=== PATIENT | female | born 1980 | race Caucasian/White ===

== ENCOUNTER → 2016-03-04 13:46 | Outpatient (CLI) | payer MEDICAID ==
[~2016-03-04 13:46] MED LIST: FERROUS SULFAT325 MG; IBUPROFEN600 MG PO; PERCOCET 5-3251 TAB PO; PRENATAL COMPLE1 TAB PO
[2016-03-14 10:47] VITALS: BMI 39.0
== END | disposition home or self-care (01) ==
LOC: D.LDO 13:46
DX: O24.419 Gestational diabetes mellitus in pregnancy, unspecified control (principal); Z3A.37 37 weeks gestation of pregnancy

== ENCOUNTER → 2016-03-12 22:01 | Outpatient (CLI) | payer MEDICAID ==
[2016-03-14 10:47] VITALS: BMI 39.0
== END | disposition home or self-care (01) ==
LOC: D.LDO 22:01
DX: O24.913 Unspecified diabetes mellitus in pregnancy, third trimester (principal); Z3A.38 38 weeks gestation of pregnancy

== ENCOUNTER 2016-03-14 08:41 | Inpatient (IN) | payer MEDICAID ==
[~2016-03-14] VITALS: Ht 162.6 cm; Wt 103.2 kg
[~2016-03-14 08:41] MED LIST changes: -IBUPROFEN600 MG PO; -PERCOCET 5-3251 TAB PO
[2016-03-14 10:33] LABS: HEMATOCRIT 30.9 % (36.0-48.0); HEMOGLOBIN 9.9 g/dL (12-16); MCH 26.9 pg (26.0-34.0); MEAN PLATELET VOLUME 10.5 fL (7.4-10.4); RBC 3.68 10x6/uL (4.00-5.40); RDW 14.5 % (11.5-14.5); WBC 9.1 10x3/uL (4.8-10.8)
--- NOTE | 2016-03-14 10:40 | NUR ---
THIS RN TO ROOM FOR PT CHECK. PT LYING IN BED SUPINE WITH LEFT TILT, HOB 30 DEGREES. PT RESTING WITH EYES CLOSED, RESP EVEN AND UNLABORED. PT LEFT UNDISTURBED.
[2016-03-14 10:47] VITALS: BP 104/58; Ht 162.6 cm; Wt 103.2 kg
[2016-03-14 10:50] LABS: APPEARANCE CLEAR (CLEAR); BACTERIA FEW /hpf (NONE SEEN); BILIRUBIN NEGATIVE (NEGATIVE); COLOR YELLOW (YELLOW); EPITHELIAL CELLS 0-5 /hpf (0-5); GLUCOSE NEGATIVE (NEGATIVE); KETONE NEGATIVE (NEGATIVE); LEUKOCYTE ESTERASE NEGATIVE (NEGATIVE); NITRITE NEGATIVE (NEGATIVE); PROTEIN NEGATIVE (NEGATIVE); RED CELLS - URINE 0-5 /hpf (0-5); UROBILINOGEN NORMAL (NORMAL); WHITE CELLS - URINE 0-5 /hpf (0-5)
[2016-03-14 21:07] VITALS: BP 133/63
--- NOTE | 2016-03-14 21:30 | NUR ---
PT TRANSFERED FROM LDR 1277 TO LDR 1273 TO CONT PP CARE. SEE YAKOV FLOWSHEET FOR FULL DETAILS. SEE CPN FOR PREVIOUS PT CHARTING. PT RESTING IN BED IN SEMI-FOWLERS POSITION IN NO ACUTE DISTRESS. FRESH WATER MUG PROVIDED TO PT. PT ORIENTED TO ROOM. PT IS A 36YO G5 NOW P5 WITH OF VIABLE FEMALE TODAY @ 191. BED IN LOW POSITION, SIDE RAILS UP TIMES 2, CALL LIGHT AND PHONE IN REACH. WILL CONT TO MONITOR PT STATUS.
--- NOTE | 2016-03-14 22:26 | NUR ---
FOOD PROVIDED TO PT BY PT FAMILY.
[2016-03-14 23:59] VITALS: BP 131/75
--- NOTE | 2016-03-15 | NUR ---
RN TO PT BS FOR VS. PT RESTING IN BED . VS TAKEN, WNL. PT C/O PAIN, RATES 10/01, REQUESTS MEDICATION. 1 TAB PERCOCET 10 AND 1 TAB IBUPROFEN PROVIDED AT THIS TIME. PT DENIES ANY FURTHER NEEDS. BED IN LOW POSITION, SIDE RAILS UP TIMES 2, CALL LIGHT AND PHONE IN REACH. SO AT PT BS FOR SUPPORT AND ASSISTANCE. INFANT REMAINS AT PT BS FOR COUPLET CARE. WILL CONT TO MONITOR.
--- NOTE | 2016-03-15 01:28 | NUR ---
DR. SILVER AT PT BS TO DISCUSS ASSESSMENT.
--- NOTE | 2016-03-15 01:35 | NUR ---
PT RESTING IN BED IN SEMI-FOWLERS POSITION IN NO ACUTE DISTRESS. PT REQUESTS MORE ICE, PROVIDED. TEMP IN ROOM ADJUSTED. PT DENIES ANY FURTHER NEEDS. BED IN LOW POSITION, SIDE RAILS UP TIMES 2, CALL LIGHT AND PHONE IN REACH. SO REMAINS AT PT BS FOR SUPPORT AND ASSISTANCE. WILL CONT TO MONITOR PT STATUS.
--- NOTE | 2016-03-15 03:23 | NUR ---
RN TO PT BS FOR ROUNDS. PT RESTING IN BED IN SEMI-FOWLERS POSITION, IN NO ACUTE DISTRESS HOLDING INFANT. PT REQUESTS FRESH ICE, PROVIDED. PT DENIES ANY FURTHER NEEDS. BED IN LOW POSITION, SIDE RAILS UP TIMES 2, CALL LIGHT AND PHONE IN REACH. SO REMAINS AT PT BS FOR SUPPORT AND ASSISTANCE. REMAINS AT PT BS FOR COUPLET CARE. WILL CONT TO MONITOR PT STATUS.
--- NOTE | 2016-03-15 05:42 | NUR ---
RN TO PT BS FOR ROUNDS. PT RESTING IN BED IN SEMI-FOWLERS POSITION, HOLDING , IN NO ACUTE DISTRESS. PT REQUESTS HELP , WILL NOTIFY NURSERY RN. FRESH ICE PROVIDED TO PT. PT DENIES ANY FURTHER NEEDS. BED IN LOW POSITION, SIDE RAILS UP TIMES 2, CALL LIGHT AND PHONE IN REACH. SO REMAINS AT PT BS FOR SUPPORT AND ASSISTANCE. REMAINS AT PT BS FOR COUPLET CARE. WILL CONT TO MONITOR.
--- NOTE | 2016-03-15 05:44 | NUR ---
NURSERY RN AT PT BS TO ASSIST WITH EFFORT.
[2016-03-15 06:59] LABS: BASOPHILS 0.3 % (0.0-2.0); EOSINOPHILS 0.9 % (0-7); HEMATOCRIT 26.5 % (36.0-48.0); HEMOGLOBIN 8.6 g/dL (12-16); IMMATURE GRANULOCYTES 0.4 % (0-5); LYMPHOCYTES 24.1 % (15-50); MCH 27.2 pg (26.0-34.0); MCHC 32.5 g/dL (31.0-37.0); MCV 83.9 fL (80.0-100.0); MEAN PLATELET VOLUME 9.7 fL (7.4-10.4); MONOCYTES 6.3 % (2-11); PLATELET COUNT 226 10x3/uL (130-400); RBC 3.16 10x6/uL (4.00-5.40); RDW 14.5 % (11.5-14.5); WBC 11.1 10x3/uL (4.8-10.8)
--- NOTE | 2016-03-15 07:10 | NUR ---
SITTING UP IN BED WITH INFANT IN ARMS. FOB ON COUCH. NO REQUESTS AT THIS TIME. WAITING FOR BREAKFAST. WILL COMPLETE SHIFT ASSESSMENT AFTER BREAKFAST. SIDE RAILS UP X 2, CALL LIGHT IN REACH.
--- NOTE | 2016-03-15 07:55 | NUR ---
SHIFT ASSESSMENT COMPLETED.
[2016-03-15 07:58] VITALS: BP 115/62
--- NOTE | 2016-03-15 08:16 | NUR ---
PERCOCET 5 MG GIVEN PO FOR RELIEF OF 4/10 BACK PAIN. ALSO PLAN WARM SHOWER, AMBULATING AND STRETCHING TO RELIEVE PAIN. PT C/O PAIN AT SALINE LOCK SITE AND REQUEST REMOVAL. SALINE LOCK REMOVED AT THIS TIME.
--- NOTE | 2016-03-15 08:41 | NUR ---
COMPLETED SHOWER. AMBULATING IN ROOM. COMPLETE SOME BACK STRETCHING. SAYS PAIN IS 2/10 "I'M FEELING BETTER". INFANT CURRENTLY IN NURSERY AND FOB WENT HOME. LINENS CHANGED, FRESH WATER AND ICE GIVEN. NO REQUESTS AT THIS TIME.
--- NOTE | 2016-03-15 10:21 | NUR ---
LAYING ON RIGHT SIDE IN BED. IN CRIB. SAYS SHE CAN'T SEEM TO SLEEP ALTHOUGH FEELING TIRED. DISCUSSED CAUSES AND RELIEF MEASURES. INSTRUCTED WILL CHECK TO SEE IF SHE HAS SLEEPING PILL ORDERED FOR TONIGHT. ALSO OFFERED TO WATCH INFANT WHILE SHE TRIES TO SLEEP NOW. SAYS SHE WILL TRY AFTER NEXT FEEDING. SIDERAILS UP X2, CALL LIGHT IN REACH. DENIES OTHER REQUESTS.
--- NOTE | 2016-03-15 12:15 | NUR ---
SITTING UP IN BED HOLDING . ATE REGULAR DIET. TALKING ON PHONE. DENIES NEEDING ANYTHING AT THIS TIME.
--- NOTE | 2016-03-15 13:17 | NUR ---
SITTING UP IN BED. AND VISITOR AT BEDSIDE. DENIES NEEDING ANYTHING AT THIS TIME. TO CALL RN IF ANYTHING IS NEEDED. VERBALIZED UNDERSTANDING.
--- NOTE | 2016-03-15 14:22 | NUR ---
AMBULATING IN ROOM. REQUESTED PERCOCET FOR C/O PAIN IN LOW BACK. 07/01. SAYS SHE HAS DONE SOME STRETCHING EXERCISES WHILE UP. DISCUSSED PAIN MANAGEMENT OPTIONS.
--- NOTE | 2016-03-15 14:29 | NUR ---
PERCOCET 5 MG GIVEN PO FOR RELIEF OF BACK PAIN. DR SILVER, PEDS CURRENTLY IN ROOM VISITING WITH PT. FOB WITH INFANT IN ARMS. SIDERAILS UP X 2, CALL LIGHT IN REACH. NO ADDITIONAL REQUESTS AT THIS TIME.
--- NOTE | 2016-03-15 15:09 | NUR ---
PACK PAIN IMPROVED NOW 05/01. SAYS SHE IS GOING TO AMBULATE TO SEE IF THAT WILL HELP HER TOO. AMBULATING IN [place] AT THIS TIME. INFANT IN NURSERY.
--- NOTE | 2016-03-15 16:32 | NUR ---
SITTING IN BED HOLDING INFANT. STATES SHE IS FEELING BETTER 2/10 ON PAIN SCALE. INFORMED SHE CAN HAVE SOME MOTRIN IF SHE NEEDS FOR CONTINUE BACKACH, SAYS THAT THE PEROCET HELPED AND SHE IS DOING OK NOW. VISITORS IN ROOM. NO REQUESTS AT THIS TIME.
--- NOTE | 2016-03-15 17:45 | NUR ---
SITTING UP IN BED FINISHING DINNER. FOB IN ROOM WITH IN ARMS. NO REQUESTS AT THIS TIME. CONSIDERING SLEEPING PILL AT HS. SIDERAILS UP X 2, CALL LIGHT IN REACH.
--- NOTE | 2016-03-15 18:23 | NUR ---
SITTING UP IN BED WITH IN ARMS. REQUESTED CLEAN BLANKET AND DESITIN OINTMENT FOR BUTTOCKS. CRYING PT ASKED IF SHE SHOULD , ENCOURAGED HER TO DO SO. INFANT STOPPED CRYING AND FEEDING WELL.
--- NOTE | 2016-03-15 19:15 | NUR ---
RN TO PT BS FOR YAKOV. PT RESTING IN BED IN SEMI-FOWLERS POSITION IN NO ACUTE DISTRESS. PT IS A 36YO G5 NOW P5 WITH OF VIABLE FEMALE YESTERDAY @ 191. INFANT @ 38.5 WKS GESTATION. AAOX3. HR REGULAR. LUNGS CTAB. ABDOMEN SOFT AND NON TENDER. BS ACTIVE TIMES 4. FUNDUS FIRM AND ML @ U/-2. LOCHIA RUBRA SCANT. PERINIUM APPEARS TO BE INTACT WITH NO SWELLING NOTED. ALVARADO PAD AND PANTIES IN PLACE. PT DENIES DIFFICULTY VOIDING. STATES SHE IS PASSING GAS AND HAS HAD A BM. NO SWELLING NOTED TO UPPER OR LOWER EXTREMITIES BILATERALLY. NO IV ACCESS. PT C/O PAIN, RATES 6/10, IN BACK, REQUESTS MEDICATION. PT ALSO C/O SLEEPLESSNESS. PT STATES SHE HAS NOT SLEPT SINCE . PT PROVIDED WITH 1 TAB IBUPROFEN, 1 TAB PERCOCET 10 AND AMBIEN 10MG PO PER MD ORDERS. POC DISCUSSED WITH PT FOR NIGHT, QUESTIONS ANSWERED. FRESH ICE PROVIDED TO PT. ADDITIONAL ALVARADO PADS AND PANTIES PROVIDED. PT DENIES ANY FURTHER NEEDS. BED IN LOW POSITION, SIDE RAILS UP TIMES 2, CALL LIGHT AND PHONE IN REACH. SO AT PT BS FOR SUPPORT AND ASSISTANCE. WILL CONT TO MONITOR PT STATUS.
[2016-03-15 19:30] VITALS: BP 115/57
--- NOTE | 2016-03-15 19:51 | NUR ---
PT RESTING IN BED IN SEMI-FOWLERS POSITION IN NO ACUTE DISTRESS. POC DISCUSSED WITH PT AND NURSERY RN REGARDING INFANT CARE FOR NIGHT. PT STATES SHE WILL ALLOW TO STAY IN NURSERY AND BE BOTTLE FED THROUGH THE NIGHT TO ALLOW HER TO REST. NURSERY RN, PT AND RN IN AGREEMENT OF PT CARE. PT DENIES ANY NEEDS AT THIS TIME. BED IN LOW POSITION, SIDE RAILS UP TIMES 2, CALL LIGHT AND PHONE IN REACH. SO REMAINS AT PT BS FOR SUPPORT AND ASSISTANCE. WILL CONT TO MONITOR PT STATUS.
--- NOTE | 2016-03-15 21:25 | NUR ---
RN TO PT BS FOR ROUNDS. PT RESTING IN BED IN SEMI-FOWLERS POSITION, WITH EYES CLOSED, IN NO ACUTE DISTRESS. RESPIRATIONS EVEN AND UNLABORED. BED IN LOW POSITION, SIDE RAILS UP TIMES 2, CALL LIGHT AND PHONE IN REACH. SO REMAINS AT PT BS FOR SUPPORT AND ASSISTANCE. WILL CONT TO MONITOR PT STATUS.
--- NOTE | 2016-03-16 00:17 | NUR ---
RN TO PT BS FOR ROUNDS. PT RESTING IN BED IN LEFT LATERAL POSITION, WITH EYES CLOSED, IN NO ACUTE DISTRESS. RESPIRATIONS EVEN AND UNLABORED. BED IN LOW POSITION, SIDE RAILS UP TIMES 2, CALL LIGHT AND PHONE IN REACH. SO REMAINS AT PT BS FOR SUPPORT AND ASSISTANCE. WILL CONT TO MONITOR PT STATUS.
--- NOTE | 2016-03-16 02:02 | NUR ---
RN TO PT BS FOR ROUNDS. PT RESTING IN BED IN RIGHT LATERAL POSITION, WITH EYES CLOSED, IN NO ACUTE DISTRESS. RESPIRATIONS EVEN AND UNLABORED. BED IN LOW POSITION, SIDE RAILS UP TIMES 2, CALL LIGHT AND PHONE IN REACH. SO REMAINS AT PT BS FOR SUPPORT AND ASSISTANCE. WILL CONT TO MONITOR PT STATUS.
--- NOTE | 2016-03-16 05:30 | NUR ---
PT CALLS, REQUESTS INFANT BE BROUGHT TO ROOM FOR COUPLET CARE. TRANSPORTED TO PT'S ROOM VIA OPEN CRIB FOR COUPLET CARE BY NURSERY RN. PT DENIES ANY FURTHER NEEDS AT THIS TIME. BED IN LOW POSITION, SIDE RAILS UP TIMES 2, CALL LIGHT AND PHONE IN REACH. SO REMAINS AT PT BS FOR SUPPORT AND ASSISTANCE. REMAINS AT PT BS FOR COUPLET CARE. WILL CONT TO MONITOR PT STATUS.
--- NOTE | 2016-03-16 06:50 | NUR ---
RN TO PT BS FOR ROUNDS. PT RESTING IN BED IN SEMI-FOWLERS POSITION, HOLDING , IN NO ACUTE DISTRESS. FRESH ICE CHIPS PROVIDED TO PT PER REQUEST. PT DENIES ANY FURTHER NEEDS. BED IN LOW POSITION, SIDE RAILS UP TIMES 2, CALL LIGHT AND PHONE IN REACH. SO REMAINS AT PT BS FOR SUPPORT AND ASSISTANCE. REMAINS AT PT BS FOR COUPLET CARE. WILL CONT TO MONITOR PT STATUS.
[2016-03-16 07:50] VITALS: BP 127/59
--- NOTE | 2016-03-16 07:50 | NUR ---
Upon entering room for am assessment pt is sitting up with infant to breast. Assessment as charted on flowsheet, vital signs wnl and charted on graph. Fundus firm at u/u with light bleeding to yuliana pad, pt denies any clots with voids and states bleeding at this time is less than her menstrual. Rates her pain at 5 but states that is is mostly in her back, when asked to further explain, she states that feels like she is being "pinched" all the way up her spine "you know like when they first start you epidural." Also explains that at bottom of her back around hip area is a constant dull pressure. Pt questioned how long she had felt this and she states since delivery, also states that diffcult to walk around. Denies having spoke to anesthsia about problem and is agreeable to them being called to come and assess. she moves freely in bed to reposition self and infant without facial grimaces. Pain med offered and pt accepts with request for lemon [employer] soda and large cup of ice.
--- NOTE | 2016-03-16 08:00 | NUR ---
Dr Root notified about pt complaint of back discomfort and request made for him to come evaluate.
--- NOTE | 2016-03-16 08:05 | NUR ---
Dr Root on unit and to talk to pt.
--- NOTE | 2016-03-16 08:24 | NUR ---
Pain med given as charted on emar. taken to nursery via crib with nursery nurse. Towels placed in bathroom and pt will call if assistance is needed with shower.
--- NOTE | 2016-03-16 08:25 | NUR ---
Dr Root to unit desk and states that pt is moving freely and was able to walk about the room without difficulty. Also states that she moves head, arms and legs without complaint, md provides reassurance to pt and request that she notify nurses if notice problem becomes worse or changes in any way, and nurses will notify anesthesia.
--- NOTE | 2016-03-16 08:58 | NUR ---
bed linens changed while pt is in shower, sig other at bedside.
--- NOTE | 2016-03-16 09:43 | NUR ---
Dr Kumari out to desk after rounding on pt, Md express concerns about pt complaint of back and neck pain, Report given that anesthesia had been notified and already been assessed. Order received for Physical therepy consult.
--- NOTE | 2016-03-16 10:06 | NUR ---
Carolyn Miles 03/16/16 S: Patient states she feels good, just got out the shower. States is going. O: Patient sitting up in bed holding infant, FOB at bedside. Congratulated on delivery, asked if any questions or concerns about ? Patient states is going good, her milk isn't in yet, so she has been latching and following with formula. Explain breastmilk composition. does take time and patience in the beginning. Verify baby is latched correctly at the breast, turned tummy to tummy, nose opposite of nipple and allow baby to self-latch, explain and provided handouts on Positions for , starting a feeding, engorgement, hand expression, feeding cues and skin to skin. Asked if her nipples are so, patient replied yes, asked if she is ok with me looking at them, patient nipples do show signs of trauma, both have a scab in the upper corner of the nipple, due to infant latching incorrectly. Asked if she can show me how she is holding for feeding, demonstrate. Patient is laying sideways in bed, infant on pillow on back, and turns head for feeding. Changing how infant is latched will help with preventing sore nipples. Demonstrated how to hold infant for feeding, even with the side lying position, turn infant tummy to tummy, directly in front of breast, not too high or low, make sure is getting more than just the nipple in her mouth with feeding. Provided lanolin cream and explain how to use. This will help with healing her nipples. For next feeding, contact nursery nurse to very is latched correctly. Asked if any questions, concerns, or need, all declined, will follow up. Make patient WIC appointment A: Mom expresses concern for sore nipples. P: Continue to support during hospital visit. La Kimble, CLC
--- NOTE | 2016-03-16 10:15 | NUR ---
Physical therapy given verbal report of pt complaints. No questions and they go to room to assess patient.
--- NOTE | 2016-03-16 10:30 | NUR ---
PT provided pt with ice packs and show her where to place and explain for how long and often. They then request heat to be used to mid/upper back area with instructions to leave in place 15-20minutes 3-4 times daily. Pt states her understanding. Provided with warm bath packs covered in pillowcase, pt able to place them and states that she can feel the warmth.
--- NOTE | 2016-03-16 13:34 | NUR ---
Pt denies pain or discomfort at this time, states that her back is feeling much better since this am. Call light in reach, at bedside, family present.
--- NOTE | 2016-03-16 14:37 | NUR ---
Called to room, pt concerned that she did not get to fill out her menu this am. Reassured her that if she does not like what is brought for dinner to let nurse know and dietary can be notified with new order. She is sitting up feeding continue to rate pain at 0/10.
--- NOTE | 2016-03-16 16:00 | NUR ---
Pt denies pain or discomfort, large cup of ice per request but no other needs at this time.
--- NOTE | 2016-03-16 17:40 | NUR ---
Pt amb in halls and to the ice machine. Rates her pain at 0/10, understands to let nurse know when she needs ice packs or heat for her back. She states that her back continues to feel better denies throbbing/ache from this am. No needs at this time, back to room per herself.
[2016-03-16 19:16] VITALS: BP 127/70
--- NOTE | 2016-03-16 19:51 | NUR ---
RN TO PT BS FOR YAKOV. PT RESTING IN BED IN RIGHT TILT POSITION IN NO ACUTE DISTRESS. AT PT BS IN OPEN CRIB UNDER TWO [place]AY BILI LIGHTS, INFANT IN NO ACUTE DISTRESS. AAOX3. HR REGULAR. LUNGS CTAB. ABDOMEN SOFT AND NON TENDER. BS ACTIVE TIMES 4. FUNDUS NOT PALPATED. LOCHIA RUBRA SCANT, ALVARADO PAD AND PANTIES IN PLACE. PERINIUM APPEARS TO BE INTACT. PT DENIES DIFFICULTY VOIDING. PT STATES SHE IS PASSING GAS AND HAS HAD A BM. NO SWELLING NOTED TO UPPER OR LOWER EXTREMITIES BILATERALLY. NO IV ACCESS. PT C/O PAIN, RATES 3/10 IN BACK. REQUESTS MEDICATION AND FOR HER ICE PACK AND HEAT PACK TO BE REFRESHED. ICE PACK AND HEAT PACK REFRESHED, IBUPROFEN 1 TAB PROVIDED TO PT WITH FRESH ICE WATER. PT DENIES ANY FURTHER NEEDS AT THIS TIME. PT IS A 36 YO G5 NOW P5 WITH OF VIABLE FEMALE INFANT 03/14/16 @1911. INFANT AT 38 WKS GESTATION. BED IN LOW POSITION, SIDE RAILS UP TIMES 2, CALL LIGHT AND PHONE IN REACH. INFANT REMAINS UNDER BILI LIGHTS AT PT BS IN NO ACUTE DISTRESS. WILL CONT TO MONITOR PT STATUS.
--- NOTE | 2016-03-16 20:30 | NUR ---
NURSERY RN AT PT BS ASSISTING PT WITH BREASTPUMP. PT DENIES ANY FURTHER NEEDS.
--- NOTE | 2016-03-16 21:36 | NUR ---
RN TO PT BS FOR ROUNDS. PT REQUESTS FRESH ICE, PROVIDED. PT DENIES ANY FURTHER NEEDS. REMAINS AT PT BS IN OPEN CRIB UNDER BILI LIGHTS. BED IN LOW POSITION, SIDE RAILS UP TIMES 2, CALL LIGHT AND PHONE IN REACH. WILL CONT TO MONITOR PT STATUS.
--- NOTE | 2016-03-16 22:33 | NUR ---
RN TO PT BS FOR ROUNDS. PT RESTING IN BED IN SEMI-FOWLERS POSITION IN NO ACUTE DISTRESS. ICE MUG REFRESHED. PT DENIES ANY FURTHER NEEDS AT THIS TIME. BED IN LOW POSITION, SIDE RAILS UP TIMES 2, CALL LIGHT AND PHONE IN REACH. REMAINS AT PT BS FOR COUPLET CARE IN OPEN CRIB UNDER BILI LIGHTS. WILL CONT TO MONITOR PT STATUS.
--- NOTE | 2016-03-17 00:05 | NUR ---
RN TO PT BS FOR ROUNDS. PT RESTING IN BED IN SEMI-FOWLERS POSITION INFANT. ICE MUG REFRESHED. PT DENIES ANY FURTHER NEEDS AT THIS TIME. BED IN LOW POSITION, SIDE RAILS UP TIMES 2, CALL LIGHT AND PHONE IN REACH. INFANT REMAINS AT PT BS FOR COUPLET CARE. WILL CONT TO MONITOR PT STATUS.
--- NOTE | 2016-03-17 01:25 | NUR ---
RN TO PT BS FOR ROUNDS. PT STANDING AT INFANT'S BS, ATTEMPTING TO SOOTHE . DISCUSSED POC WITH MOTHER, PT DECIDES TO ALLOW TO TRANSPORT TO NURSERY TO ALLOW PT TO REST. TRANSPORTED TO NURSERY VIA OPEN CRIB, REPORT GIVEN TO NURSERY RN. BILI LIGHTS TRANSPORTED. PT DENIES ANY FURTHER NEEDS AT THIS TIME. BED IN LOW POSITION, SIDE RAILS UP TIMES 2, CALL LIGHT AND PHONE IN REACH. WILL CONT TO MONITOR PT STATUS.
--- NOTE | 2016-03-17 03:15 | NUR ---
RN TO PT BS FOR ROUNDS. PT RESTING IN BED IN RIGHT LATERAL POSITION, WITH EYES CLOSED, IN NO ACUTE DISTRESS. RESPIRATIONS EVEN AND UNLABORED. BED IN LOW POSITION, SIDE RAILS UP TIMES 2, CALL LIGHT AND PHONE IN REACH. WILL CONT TO MONITOR PT STATUS.
--- NOTE | 2016-03-17 04:35 | NUR ---
INFANT BREASTFEED AND PUMPING COMPLETE. NO BREAST MILK TAKEN TO REFRIGERATOR. PT DENIES ANY NEEDS AT THIS TIME. BED IN LOW POSITION, SIDE RAILS UP TIMES 2, CALL LIGHT AND PHONE IN REACH. INFANT REMAINS AT PT BS FOR COUPLET CARE UNDER BILI LIGHTS. WILL CONT TO MONITOR PT STATUS.
[2016-03-17 05:13] LABS: RAPID PLASMA REAGIN Non Reactive (Non Reactive)
--- NOTE | 2016-03-17 05:38 | NUR ---
RN TO PT BS. INFANT TAKEN TO NURSERY VIA OPEN CRIB PER NURSERY RN REQUEST FOR LAB DRAW. PT STATES SHE IS GOING TO TAKE A SHOWER WHILE INFANT IS GETTING LAB DRAWN. PT DENIES ANY FURTHER NEEDS AT THIS TIME. BED IN LOW POSITION, SIDE RAILS UP TIMES 2, CALL LIGHT AND PHONE IN REACH. WILL CONT TO MONITOR PT STATUS.
--- NOTE | 2016-03-17 07:30 | NUR ---
ASSESSMENT DONE. VERBAL RESPONSES APPRO TO QUESTIONS. REG DIET SERVED AND PT SITTING ON SIDE OF BED. PT STATES THAT BLEEDING IS SMALL AMT. NURSERY BRINGS TO ROOM. DENIES NEEDS.
[2016-03-17 07:34] VITALS: BP 131/65
[2016-03-17] MEDS ORDERED: PERCOCET 5-3251 TAB PO (08:40)
[2016-03-17] MEDS ORDERED: IBUPROFEN600 MG PO (08:40)
--- NOTE | 2016-03-17 10:00 | NUR ---
PT SITTING UP IN BEDSIDE CHAIR. SIGN OTHER AT BEDSIDE. PT DENIES NEEDS. NO REQUESTS.
--- NOTE | 2016-03-17 10:13 | NUR ---
Carolyn Miles DEANA@ : 8:25 S: Patient states she is fine, just feeding baby. O: Patient sitting up in bed feeding nursing on left breast, observed feeding, is turned tummy to tummy, sucking in a rocker motion, cheeks round mouth 140 degrees. Asked how is ? Patient states right breast hurts to have latch. She has been pumping that side, other then that is going good. Sore nipples do heal with correcting infant latch. Continue to pump the right breast, until she feels comfortable with latching on that side. Start off pumping on the lowest setting. Verify is latched correctly for every feeding. Continue to apply lanolin after feedings or pumping. If any questions or concerns, please ask. Asked if any questions, concerns, or needs, client declined. Will follow up. A: Patient states her nipples are still sore. P: Verify infant latch is correct with every feeding. Pump on the right breast to help with establishing milk supply. La Kimble, CLC
--- NOTE | 2016-03-17 12:50 | NUR ---
d/c instructions given and explained to pt. questions answered. rx x2 ( ibuprofen and percocet) given to pt. reveiwed meds and follow-up instructions. baby d/c with mom. to car via w/c. fob with mom.
== END 2016-03-17 12:50 | disposition home or self-care (01) | DRG 774 ==
LOC: D.LDO 08:41 → D.LD 09:32
PROVIDERS: ADMIT Specialist
PROC: 10E0XZZ Delivery of Products of Conception, External Approach (ICD-10-PCS; principal; 2016-03-14)
DX: O24.429 Gestational diabetes mellitus in childbirth, unspecified control (principal); O98.32 Other infections with a predominantly sexual mode of transmission complicating childbirth; Z3A.38 38 weeks gestation of pregnancy; Z37.0 Single live birth; O99.214 Obesity complicating childbirth; Z68.39 Body mass index [BMI] 39.0-39.9, adult; A63.0 Anogenital (venereal) warts; O99.824 Streptococcus B carrier state complicating childbirth; Z87.891 Personal history of nicotine dependence; M54.12 Radiculopathy, cervical region; M54.5 Low back pain; O75.89 Other specified complications of labor and delivery; O70.0 First degree perineal laceration during delivery; O69.81X0 Labor and delivery complicated by cord around neck, without compression, not applicable or unspecified; O32.6XX0 Maternal care for compound presentation, not applicable or unspecified

== ENCOUNTER 2016-06-01 05:03 | Day surgery (SDC) | payer MEDICAID ==
[2016-05-29 11:03] LABS: BASOPHILS 0.9 % (0.0-2.0); EOSINOPHILS 3.5 % (0-7); HEMATOCRIT 35.1 % (36.0-48.0); HEMOGLOBIN 11.4 g/dL (12-16); IMMATURE GRANULOCYTES 0.2 % (0-5); LYMPHOCYTES 39.2 % (15-50); MCHC 32.5 g/dL (31.0-37.0); MCV 86.2 fL (80.0-100.0); MEAN PLATELET VOLUME 10.2 fL (7.4-10.4); MONOCYTES 6.4 % (2-11); NEUTROPHILS 49.8 % (40-80); RBC 4.07 10x6/uL (4.00-5.40); WBC 5.4 10x3/uL (4.8-10.8)
[2016-05-29 11:07] LABS: PLATELET COUNT 289 10x3/uL (130-400)
[~2016-06-01] VITALS: Ht 162.6 cm; Wt 91.2 kg
--- NOTE | ~2016-06-01 | OP ---
PATIENT NAME: DONNIE PEÑA MEDICAL RECORD: [id number] :76 LOCATION:D.OPS ADMISSION DATE: SURGEON: JAZZ KUMARI MD DATE OF OPERATION: 06/01/2016 PREOPERATIVE DIAGNOSES: 1. Desired sterility. 2. Umbilical hernia. POSTOPERATIVE DIAGNOSES: 1. Desired sterility. 2. Umbilical hernia. SURGEON: Jazz Kumari M.D. ADVISOR CONSULTANT SURGEON AND PHYSICIAN: Lee Kyle M.D. (JJ) ANESTHESIA: General endotracheal anesthesia with Radha Platt CRNA. PROCEDURES: 1. Laparoscopic sterilization via bilateral distal salpingectomy. 2. (Laparoscopic umbilical hernia repair with mesh per Dr. Kyle. Please see his report for details). FINDINGS: Normal-appearing uterus, ovaries, and tubes bilaterally. Fascial defect at the umbilicus. DESCRIPTION OF THE PROCEDURE: After informed consent was given, the patient was taken to the operating room where a general endotracheal anesthesia was placed and found to be adequate. She was placed in a dorsal lithotomy position in [facility]. She was prepped and draped sterilely including a vaginal prep. A Berumen catheter was placed into the bladder with approximately 200 cc of clear urine return noted. A bivalve speculum was then placed into the vagina. The cervix was visualized and grasped anteriorly with a single-tooth tenaculum. A Pelosi uterine manipulator was then placed with ease and the bivalve speculum removed. The patient was placed into a ski position. Gloves were changed. Dr. Kyle then began trocar placement, placing a trocar in the left upper quadrant with a 5-mm Optiview port entering the abdominal cavity and then insufflating with approximately 2 liters of CO2 gas. He then continued placing a 5-mm trocar in the left lower quadrant and the right lower quadrant and at the umbilicus after identifying the umbilical fascial defect. At this time, we began the DIRECTOR HR COMMUNICATIONS portion of the procedure. The Pelosi uterine manipulator was used to elevate the uterus, ovaries, and tubes so these could be visualized well. An atraumatic grasper was used to grasp the right fallopian tube in the fimbrial region. We then used Gyrus and Harmonic scalpel to cauterize and transect the mesosalpinx, beginning distally. We then cauterized and transected the more proximal portion of the fallopian tube and transected the fallopian tube. We then continued cauterizing and transecting the mesosalpinx until the distal fallopian tube and fimbria were excised. The distal fallopian tube and fimbria were then removed through the right laparoscopic port and passed off the field as specimen. Attention was then turned to the opposite side. An atraumatic grasper in a similar fashion was used to grasp the fimbrial portion of the left fallopian tube and we used the Harmonic scalpel and Gyrus to cauterize and transect the mesosalpinx until reaching the more proximal portion of the fallopian tube. The fallopian tube itself was then cauterized and transected and the left distal OPERATIVE REPORT [id number] DONNIE PEÑA fallopian tube and fimbria were excised and removed through a 5-mm port and passed off the field as specimen. All regions of the mesosalpinx were noted to be hemostatic and the procedure was turned over to Dr. Kyle for the umbilical hernia repair. Please see his dictation for details of this. Once he had completed placing the circular mesh at the umbilical region, the ports were removed. The abdomen was desufflated and the port sites were closed in mattress sutures with Steri-Strips, and Band-Aids applied atop. Attention was then turned down below. The Pelosi uterine manipulator was removed. The bivalve speculum was replaced into the vagina. The single-tooth tenaculum was removed and silver nitrate was used at the tenaculum sites with excellent hemostasis noted. The bivalve speculum was then removed. The Berumen catheter was removed and 285 cc of clear urine was noted within. The patient was returned to a supine position, awakened and taken into the recovery room in stable condition. The patient tolerated procedure well. Sponge, lap, needle, and instrument counts were reported correct x2. ESTIMATED BLOOD LOSS: Minimal. IV FLUIDS: 900 cc crystalloid. URINE OUTPUT: 285 cc clear. COMPLICATIONS: None. SPECIMENS: 1. Right distal fallopian tube/fimbria. 2. Left distal fallopian tube/fimbria. TRANSINT:[id number] Voice Confirmation ID: [id number] DOCUMENT ID: [id number] JAZZ KUMARI MD CC: [id number] DICTATION DATE: 06/01/16928 FUR PULLER: 06/01/16 1[address] [facility] [address] [place] [address]
[~2016-06-01 05:03] MED LIST changes: +IBUPROFEN600 MG PO; +PERCOCET 5-3251 TAB PO
[2016-06-01 05:55] VITALS: BP 148/100; Ht 162.6 cm; Wt 91.2 kg
[2016-06-01 06:05] LABS: HCG URINE NEGATIVE (NEGATIVE)
[2016-06-01] MEDS ORDERED: HYDROCODON-ACE1 EAC7 PO (09:01)
--- NOTE | 2016-06-01 12:58 | OP ---
PATIENT NAME: DONNIE PEÑA MEDICAL RECORD: [id number] :78 LOCATION:[facility] ADMISSION DATE: SURGEON: BALTA FORMAN MD DATE OF OPERATION: 06/01/2016 SURGEON: Balta Forman MD PREOPERATIVE DIAGNOSIS: Ventral abdominal wall hernia. POSTOPERATIVE DIAGNOSIS: Ventral abdominal wall hernia. PROCEDURE PERFORMED: Laparoscopic ventral hernia repair with Ventralight ST mesh. ANESTHESIA: General. COMPLICATIONS: None. SPECIMENS: None. Case was clean. OPERATIVE COURSE: After consent was obtained, the patient was taken to the operating room and placed in supine position on the operating table. Next, general anesthesia was given via endotracheal intubation. A Berumen catheter was placed. The patient was placed into a lithotomy position. After the timeout was taken, the abdomen was prepped and draped in typical sterile fashion. A stab incision was made in the left upper quadrant at Silva's point. Using a 5-mm bladeless optical trocar, the abdomen was entered under direct laparoscopic vision. Adequate pneumoperitoneum was achieved. The abdominal cavity was inspected. No evidence of bowel injury. No evidence of bleeding. The patient was placed into Trendelenburg position. At this time, 2 additional trocars were placed, two 5-mm trocars, one in the left lower quadrant and one in the right lower quadrant and a third 5-mm trocar at the umbilicus. At this position of the case, Dr. Kumari performed a laparoscopic tubal ligation. Once complete, the 5-mm trocar was removed from the umbilicus. An 11-mm trocar was placed in the left lateral quadrant. A 4-inch Ventralight ST mesh was placed in the abdomen. Using a Gerardo-Casey suture passer, the Echo positioning system was grasped and delivered through the ventral hernia defect in the anterior midline. The Echo positioning system was inflated. The 4-inch mesh was well positioned against the anterior abdominal wall. It was secured using the OptiFix Tacker. The Echo positioning system was removed through the 11-mm trocar. At this time, the abdominal cavity was inspected. There was no evidence of bowel injury. No evidence of bleeding. The abdominal cavity was copiously irrigated and suctioned. At this time, all remaining instruments were removed. The abdomen was desufflated. Trocars removed. Skin was closed with 4-0 Monocryl, Mastisol, and Steri-Strips. At the end of the case, all needle and instrument counts were correct. No complications occurred. TRANSINT:[id number] Voice Confirmation ID: [id number] DOCUMENT ID: [id number] OPERATIVE REPORT [id number] DONNIE PEÑA JAMES J MD at 1258 CC: [id number] DICTATION DATE: 06/01/16904 CANCELING MACHINE OPERATOR: 06/01/16 1226 REG [place] [id number] [place] [id number]
--- NOTE | 2016-06-01 14:42 | NUR ---
1030--DR FORMAN AT BEDSIDE WITH PT AND . PT COMPLAINS OF NAUSEA AND ITCHING, ORDERS RECIEVED PER DR FORMAN. MARI MARROQUIN 1046--4MG ZOFRAN GIVEN SIVP. MARI MARROQUIN 1049--BENEDRYL 12.5MG GIVEN SIVP FOR ITCHING, PT DENIES FURTHER NEEDS. MARI MARROQUIN 1200--PT UP TO THE BATHROOM, VOIDS WITHOUT DIFFICULTY. 1230--IV DC'D, PT UP TO DRESS. MARI MARROQUIN 1300--PT COMPLAINS OF NAUSEA WHILE TRYING TO GET DRESSED, DR FORMAN ON UNIT NEW ORDER RECIEVED. MARI MARROQUIN 1323--PHENERGAN 25MG GIVEN IN RIGHT BUTTOCK, PT TOLERTED WELL. MARI MARROQUIN 1325--DISCHARGE INSTRUCTIONS GIVEN, PT VERBALIZES UNDERSTANDING. PT OFF UNIT VIA WC. MARI MARROQUIN
== END 2016-06-01 13:25 | disposition home or self-care (01) ==
LOC: D.OPS 05:03 → D.PAN 09:00 → D.OPS 09:45
PROVIDERS: Specialist; Surgery
DX: Z30.2 Encounter for sterilization (principal); K43.9 Ventral hernia without obstruction or gangrene

== ENCOUNTER 2018-11-07 08:00 | Outpatient (CLI) | payer MEDICAID ==
[2016-06-01 05:55] VITALS: BMI 34.5
[~2018-11-07 08:00] MED LIST changes: +HYDROCODON-ACE1 EAC7 PO
== END 2018-11-07 23:59 | disposition home or self-care (01) ==
LOC: D.MAMMO 08:00
PROVIDERS: ATTEND Nurse Practitioner
DX: N64.4 Mastodynia (principal)